=== PATIENT | female | born 1955 | race Caucasian/White ===

== ENCOUNTER 2021-05-20 16:59 | Outpatient (REF) | payer MEDICARE, SELFPAY ==
[2021-05-20 17:50] LABS: Influenza A PCR NEGATIVE (Negative); Influenza B PCR NEGATIVE (Negative); Resp Syncy Virus RNA Qual PCR NEGATIVE (Negative); SARS COV2 PCR INHOUSE NEGATIVE (Negative)
== END 2021-05-20 17:00 | disposition home or self-care (01) ==
LOC: HO.LNP 16:59
PROVIDERS: Visit Provider Internal Medicine
DX: Z20.822 Contact with and (suspected) exposure to COVID-19 (principal); R43.9 Unspecified disturbances of smell and taste
CPT/HCPCS: 0241U

== ENCOUNTER 2021-10-15 13:38 | Emergency (ER) | payer MEDICARE, SELFPAY ==
--- NOTE | ~2021-10-15 | CT_ITS ---
EXAMINATION: CT HEAD WITHOUT CONTRAST CLINICAL INFORMATION: Headache and dizzy. COMPARISON: There are no prior studies available comparison. TECHNIQUE: Contiguous axial imaging was performed from the skull base to vertex without intravenous administration of contrast. Coronal and sagittal reformatted images were generated at the technologist workstation. This CT examination was performed using dose optimization techniques as appropriate, variously including the following: *Automated exposure control *Adjustment of mA and/or kV according to patient size (this includes techniques or standardized protocols for targeted exams where dose is matched to indication/reason for exam; i.e. extremities or head) *Use of iterative reconstruction technique DLP: 677 mGy-cm FINDINGS: There is no evidence of acute intracranial hemorrhage or territorial infarction. No abnormal mass effect or midline shift is seen. Buckley to white matter differentiation is well preserved. No extra-axial fluid collections are identified. There is mild commensurate prominence of the ventricles and sulci. There is mild prominence of the extra-axial CSF around the frontal lobes bilaterally. There are areas of low-attenuation in the periventricular and subcortical white matter, most prominent adjacent to the anterior horn of the left lateral ventricle; these findings are most consistent with chronic microvascular ischemic changes. The soft tissues are unremarkable. There are no acute osseous findings. There is hyperostosis frontalis interna. There is mild left and moderate right fluid in the mastoid air cells. There is cerumen in the left external auditory canal. The visualized portions of the paranasal sinuses are well aerated. CT/CT head/brain wo con IMPRESSION: 1. There are no acute bleeds or territorial infarcts. No masses are demonstrated. 2. There is diffuse volume loss and there are chronic microvascular ischemic changes.
[2021-10-15 14:45] VITALS: BP 172/92; PULSE 94; RESP 18; TEMP 36.8; O2SAT 97; BMI 32.4
[2021-10-15 15:07] LABS: MANUAL DIFF FLAG NO
[2021-10-15 15:10] LABS: Basophils Percent Auto 0.4 % (0-2); Eosinophils Absolute Auto 0.2 X10*3/uL (0.0-0.4); Eosinophils Percent Auto 1.9 % (0-4); Hematocrit 41.5 % (37.0-47.0); Hemoglobin 14.6 g/dl (12.0-16.0); Imm Gran Abs Auto 0.04 X10*3/uL (0.00-0.03); Imm Gran Pct Auto 0.4 % (0.0-0.4); Lymphocytes Absolute Auto 3.2 X10*3/uL (1.2-4.9); Lymphocytes Percent Auto 28.4 % (20-40); Mean Corpuscular HGB Conc 35.2 g/dl (31.0-35.0); Mean Corpuscular Hemoglobin 31.8 pg (27.0-33.0); Mean Corpuscular Volume 90.4 fL (80.0-98.0); Mean Platelet Volume 9.4 fL (9.4-12.3); Monocytes Absolute Auto 0.5 X10*3/uL (0.1-1.2); Monocytes Percent Auto 4.4 % (2-11); Neutrophils Absolute Auto 7.2 x10*3/uL (2.0-8.3); Neutrophils Percent Auto 64.5 % (45-73); Platelet Count 249 X10*3/uL (160-400); Red Blood Count 4.59 X10*6/uL (4.20-5.50); Red Cell Distribution Width 14.4 % (11.0-16.0); White Blood Count 11.1 X10*3/uL (4.8-10.8)
[2021-10-15 15:35] LABS: Anion Gap 16 (12-20); Blood Urea Nitrogen 17 mg/dL (9-16); Calcium 9.5 mg/dL (8.4-10.2); Carbon Dioxide 23 mmol/L (22-29); Chloride 109 mmol/L (96-108); Creatinine Clr Calc Pharmacy 75.1; Estimated Glomerular Filt Rate > 60; Glucose Random 130 mg/dL (60-115); Potassium 4.6 mmol/L (3.3-5.1); Sodium 143 mmol/L (135-145)
--- NOTE | 2021-10-15 18:14 | PC.NURSE ---
pt arrives to the room with multiple complaints including weakness, diarrhea and thyroid concerns
[2021-10-15 18:16] VITALS: BP 189/87; PULSE 88; RESP 18; O2SAT 97
[2021-10-15] MEDS: Ketorolac Tromethamine 15 MG/ML VIAL IVPUSH (19:09)
[2021-10-15] MEDS: 0.9 % Sodium Chloride 1,000 ML 999 ML IV (19:09)
[2021-10-15] MEDS: ondansetron HCL 4 MG/2 ML VIAL IVPUSH (19:10)
[2021-10-15] MEDS: diphenhydrAMINE HCL 50 MG/ML VIAL 25 MG IVPUSH (19:10)
--- NOTE | 2021-10-15 19:23 | ED.GENADULT ---
HPI - General Adult General Chief complaint: General Medical Stated complaint: Vertigo/High thyroid/High WBC Time Seen by Provider: 10/15/21 18:02 Source: patient and family Mode of arrival: ambulatory Limitations: no limitations History of Present Illness HPI narrative: 65-year-old female presents for 2 months of diarrhea, nausea, fatigue, intermittent headaches, and vertigo. Patient came here because it took a long time to get an appointment to see her PCP. She sees her PCP October 21. Patient was seen at [facility] urgent care 3 weeks ago, was told she had an elevated white blood cell count and elevated thyroid test. Patient has had diarrhea for 2 months, she has it up to 5 times each day, no dark tarry or bloody stools. Patient is nauseous and is always tired. She has in sensation in the morning when she wakes up and falls back to sleep that she will wake up again. She is not suicidal. States when she does eat she feels famished 20 minutes later. States her head feels sweaty. This morning she had a headache that is like her usual headaches that she woke up with. The headache was gradual in onset was 6/10. No fever, no stiff neck, no photophobia, no gait disturbance, no vomiting. She had dizziness when she sat up in the room was spinning. She has a history of ear infections and has had vertigo in the past. The vertigo has almost entirely resolved, she has no focal weakness, numbness, or tingling. No chest pain or shortness of breath, no upper respiratory symptoms, no abdominal pain, no bad foods, recent travel, or water from unknown sources. Patient is vaccinated for COVID. by bedside tells me that they are under lot of stress because they were in a custody patrick for their granddaughter. Patient endorses a past medical history of anxiety. Related Data Home Medications Medication Instructions Recorded Confirmed alprazolam 0.5 mg tablet 0.5 mg PO TID PRN 05/20/21 10/15/21 lamotrigine 100 mg tablet 100 mg PO QAM 05/20/21 10/15/21 venlafaxine 150 mg 300 mg PO QAM 05/20/21 10/15/21 capsule,extended release 24 hr zolpidem 10 mg tablet 10 mg PO BEDTIME 05/20/21 10/15/21 Previous Rx's Medication Instructions Recorded dexamethasone 4 mg tablet 4 mg PO DAILY 3 Days #3 tab 10/15/21 lisinopril 10 mg tablet 10 mg PO DAILY 14 Days #14 tab 10/15/21 ondansetron 4 mg disintegrating 4 mg PO Q8H PRN #9 tab 10/15/21 tablet Allergies Allergy/AdvReac Type Severity Reaction Status Date / Time No Known Allergies Allergy Verified 10/15/21 14:43 Review of Systems Constitutional: Constitutional: Denies body ache(s), Denies chills, Denies fatigue, Denies fever(s), Reports headache(s), Reports malaise and Denies weakness Eyes: Eyes: Denies blurry vision and Denies diplopia ENT: Reports vertigo, Denies otalgia, Reports headache(s), Denies mouth pain, Denies post nasal drip, Denies sinus pain, Denies sinus pressure, Denies sore throat and Denies throat swelling Cardiovascular: Cardiovascular: Denies chest pain, Denies syncope, Denies leg edema, Denies lightheadedness, Denies Loss of Consciousness, Denies palpitations and Denies dyspnea Respiratory: Respiratory: Denies chest congestion, Denies cough and Denies dyspnea Gastrointestinal: Gastrointestinal: Reports abdominal pain, Denies melena, Denies hematochezia, Denies coffee ground emesis, Denies constipation, Reports diarrhea, Reports nausea and Denies vomiting Genitourinary: Genitourinary: Reports no additional female genitourinary complaints Musculoskeletal: Musculoskeletal: Reports no additional musculoskeletal complaints, Denies numbness and Denies tingling Neurologic: Denies Abnormal speech present, Denies confusion, Reports vertigo, Denies syncope, Reports headache(s), Denies lack of coordination, Denies focal weakness, Denies numbness, Denies Sensory deficit (Neuro), Denies tingling and Denies weakness Psychiatric: Psychiatric: Reports anxiety, Denies confusion and Denies depression Endocrine: Endocrine: Denies fatigue and Denies palpitations Allergic/Immunologic: Allergic/Immunologic: Denies throat swelling PMFSH Past Medical History Medical History (Updated 10/15/21 @ 21:16 by MARCO Jones) Anxiety Depression Vertigo Social History Social History Alcohol intake: never Patient Tobacco Use Status: Never used Tobacco Use of substances other than those prescribed or required for medical reasons: No Advance Directives: No Advance Directives Information Provided: Yes Patient : No Physical Exam ED Vital Signs: Vital Signs - 24 hr 10/15/21 14:45 10/15/21 18:16 10/15/21 19:34 Temperature 98.3 F Pulse Rate 94 88 84 Respiratory Rate 18 18 Blood Pressure 172/92 H 189/87 H 179/87 H Pulse Oximetry 97 97 10/15/21 19:35 10/15/21 19:36 10/15/21 20:00 Temperature Pulse Rate 84 100 93 Respiratory Rate 96 H Blood Pressure 180/88 H 181/93 H 165/74 H Pulse Oximetry 97 BMI result Body Mass Index 32.4 Const General: alert and awake; No confusion Nutritional Appearance: obese Orientation/consciousness: patient oriented x3 and No confusion Limitations: no limitations HENMT Head: Yes normal to inspection, Yes No palpable skull fracture present, Yes normocephalic and Yes atraumatic Ears: hearing grossly normal bilaterally, TM normal on the left and TM abnormal bulging on the right and wth effusion serous General nose exam: Normal external nose present Face and sinus: Yes normal facial exam Mouth: Normal oral and palatal mucosa present Throat: Yes posterior oropharynx normal Eyes Periorbital: periorbital findings normal Eyelids: Yes eyelids normal Conjunctivae: conjunctivae normal Pupils: Equal, round and reactive pupils present EOM: EOMs intact bilaterally and No Nystagmus present Direct Ophthalmoscopy: no photophobia Neck Neck: Yes normal visual inspection, Yes full ROM, Yes no lymphadenopathy, Yes no meningeal signs, Yes trachea midline and Yes supple Resp Effort & Inspection: normal respiratory effort and able to speak in complete sentences Auscultation: clear to auscultation bilaterally, no crackles, no rales, no rhonchi and no wheezes Cardio Rate: regular rate Rhythm: regular rhythm Heart sounds: S1 normal heart sound present and S2 normal heart sound present GI Inspection: Yes Abdominal panniculus present and Yes obesity Palpation (GI): Soft to palpation, not firm, nontender, no guarding and not rigid Percussion: Yes normal to percussion Auscultation: normal bowel sounds General: Yes no CVA tenderness Back/Spine/Pelvis Back: no CVA tenderness Skin General skin exam: no rashes or lesions noted Neuro General: patient oriented x3, no meningeal signs and No confusion Cranial nerves: Yes CN's II-XII intact bilaterally, Yes Facial sensation intact/muscles of mastication intact, Yes Equal, round and reactive pupils present, Yes Normal accommodation reflex present, Yes Bilaterally intact EOM present, Yes Nystagmus not present, Yes Normal facial strength present, Yes Midline tongue present, Yes Ability to bilaterally rotate head present, Yes Ability to bilaterally elevate shoulders present and No Nystagmus present Cognition (Neuro): normal cognition Speech: No Abnormal speech present Gait exam (Neuro): Normal gait present Motor exam (neuro): 5/5 motor strength present throughout and Pronator motor function not present Sensory Exam: No Sensory deficit (Neuro) Deep tendon reflexes (DTR's): Right brachioradialis reflex intensity grade: 1+, Left brachioradialis reflex intensity grade: 1+, Right patellar reflex intensity grade: 1+ and Left patellar reflex intensity grade: 1+ Coordination: [id number] test normal, [id number] test normal and tandem gait normal Romberg Test: Negative Pupils: Normal pupillary reactivity/response: bilateral Extrem General: Yes normal to inspection, Yes full ROM and Yes capillary refill normal Psych Appearance: grossly normal Mental Status: mental status grossly normal Speech and movement: Normal speech and movement present Affect: Sad affect present and Anxious affect present Attitude: cooperative Thought process: Normal thought process present Course Course Course Narrative: 65-year-old female with 2 months of diarrhea, nausea, fatigue, headaches, and vertigo that started today. On exam, patient is anxious and tearful. Patient is hypertensive with a systolic at 189. Patient has lungs clear to auscultation, benign abdominal exam, benign neurological exam. No focal neuro deficits. Only physical abnormalities patient has clear fluid behind her right TM and her right TM is bulging will give fluids, Toradol, Benadryl, Zofran, will get stool studies, C diff, TSH, head CT. Reevaluation(s) Reevaluation #1: CT/CT head/brain wo con IMPRESSION: 1. There are no acute bleeds or territorial infarcts. No masses are demonstrated. 2. There is diffuse volume loss and there are chronic microvascular ischemic changes. Labs is remarkable for white blood cell count of 11.1, TSH 4.49. Reevaluation #2: patient's headache is now a 4/10 and is better than it was. Patient's blood pressure has remained high in the emergency room, lowest reading has been 157/80. Discussed starting patient on lisinopril at a low dose and to follow-up with her primary care provider. Will give patient dexamethasone to abort rebound headache, and short course of Zofran for nausea. Told patient that her stool culture is pending, and to call us if she has not heard from us in a couple of days. Counseled patient to record her blood pressure for the next 6 days until she sees her primary care provider. Discussed that her thyroid may be low and she may need to start on thyroid medication, this is something her primary care provider can manage. Medical Decision Making Lab Data Result diagrams: 10/15/21 15:03 10/15/21 15:03 Labs: Lab Results 10/15/21 10/15/21 Range/Units 15:03 15:03 WBC 11.1 H (4.8-10.8) X10*3/uL RBC 4.59 (4.20-5.50) X10*6/uL Hgb 14.6 (12.0-16.0) g/dl Hct 41.5 (37.0-47.0) % MCV 90.4 (80.0-98.0) fL MCH 31.8 (27.0-33.0) pg MCHC 35.2 H (31.0-35.0) g/dl RDW 14.4 (11.0-16.0) % Plt Count 249 (160-400) X10*3/uL MPV 9.4 (9.4-12.3) fL Immature Gran % (Auto) 0.4 (0.0-0.4) % Neut % (Auto) 64.5 (45-73) % Lymph % (Auto) 28.4 (20-40) % Toole % (Auto) 4.4 (2-11) % Eos % (Auto) 1.9 (0-4) % Baso % (Auto) 0.4 (0-2) % Lymph # (Auto) 3.2 (1.2-4.9) X10*3/uL Toole # (Auto) 0.5 (0.1-1.2) X10*3/uL Eos # (Auto) 0.2 (0.0-0.4) X10*3/uL Baso # (Auto) 0.0 (0.0-0.2) X10*3/uL Abs Immat Gran (auto) 0.04 H (0.00-0.03) X10*3/uL Absolute Neuts (auto) 7.2 (2.0-8.3) x10*3/uL Absolute Nucleated RBC 0.000 (0.0-0.012) X10*3/uL Nucleated RBC % (auto) 0.0 (0.0-0.2) /100WBC Sodium 143 (135-145) mmol/L Potassium 4.6 (3.3-5.1) mmol/L Chloride 109 H (96-108) mmol/L Carbon Dioxide 23 (22-29) mmol/L Anion Gap 16 (12-20) BUN 17 H (9-16) mg/dL Creatinine 0.86 (0.5-1.4) mg/dL Estim Creat Clear Calc 75.1 Estimated GFR > 60 Random Glucose 130 H (60-115) mg/dL Calcium 9.5 (8.4-10.2) mg/dL TSH 4.49 H (0.32-4.0) uIU/mL Free T4 0.91 (0.71-1.85) ng/dL Discharge Plan Discharge Clinical Impression: Diarrhea, Hypertension, Anxiety Patient Disposition: Home, Self-Care Instructions: Hypertension (ED) Additional Instructions: Please take your blood pressure and recorded every day for the next 6 days and keep your appointment with your primary care provider for October 21. We have obtained stool studies, please call if you have not heard the results in the next couple of days. If they are positive we should be calling you. Your thyroid test is high which means your thyroid is not functioning well, please discuss this with her primary care provider. I have prescribed 2 weeks of a hypertension medication called lisinopril, take this once a day and record your blood pressures. I have also prescribed ondansetron, this is for nausea, take it only as prescribed. Please take dexamethasone once in the morning for the next 3 days to make sure you do not get a rebound headache. Please return to emergency room if you have sudden severe headache, visual changes, gait disturbance, chest pain, shortness of breath, or any other new or concerning symptoms. Prescriptions: New lisinopril 10 mg tablet 10 mg PO DAILY 14 Days Qty: 14 0RF dexamethasone 4 mg tablet 4 mg PO DAILY 3 Days Qty: 3 0RF ondansetron 4 mg tablet,disintegrating 4 mg PO Q8H PRN (Reason: nausea and vomiting) Qty: 9 0RF No Action zolpidem 10 mg tablet 10 mg PO BEDTIME 0RF alprazolam 0.5 mg tablet 0.5 mg PO TID PRN (Reason: Anxiety) 0RF lamotrigine 100 mg tablet 100 mg PO QAM 0RF venlafaxine 150 mg capsule,extended release 24hr 300 mg PO QAM 0RF
[2021-10-15 19:34] VITALS: BP 179/87; PULSE 84
[2021-10-15 19:34] LABS: TSH reflex Free T4 4.49 uIU/mL (0.32-4.0)
[2021-10-15 19:35] VITALS: BP 180/88; PULSE 84
[2021-10-15 19:36] VITALS: BP 181/93; PULSE 100
[2021-10-15 20:00] VITALS: BP 165/74; PULSE 93; RESP 96; O2SAT 97
[2021-10-15 20:24] LABS: Free T4 (Free Thyroxine) 0.91 ng/dL (0.71-1.85)
[2021-10-15] MEDS: dexAMETHasone 4 MG TABLET PO (21:36)
== END 2021-10-15 21:40 | disposition home or self-care (01) ==
PROVIDERS: Emergency Provider Internal Medicine
DX: R19.7 Diarrhea, unspecified (principal); R51.9 Headache, unspecified; I10 Essential (primary) hypertension; F41.9 Anxiety disorder, unspecified; Z79.899 Other long term (current) drug therapy
CPT/HCPCS: 36415; 70450; 80048; 84439; 84443; 85025; 96361; 96374; 96375; 99284; 99285; J1200; J1885; J2405; J8540

== ENCOUNTER 2022-02-05 09:02 | Emergency (ER) | payer MEDICARE, SELFPAY ==
[2022-02-05 09:13] VITALS: BP 126/96; PULSE 73; RESP 16; TEMP 36.7; O2SAT 98; BMI 29.0
--- NOTE | 2022-02-05 10:40 | ED.EAR ---
HPI - Ear Problem General Chief complaint: Ear Problems Stated complaint: double ear infection Time Seen by Provider: 02/05/22 10:37 Source: patient Mode of arrival: ambulatory Limitations: no limitations History of Present Illness HPI Narrative: 66-year-old female with a history of multiple episodes of ruptured right tympanic membrane, multiple tympanoplasties, and a history of bilateral acute otitis media, presents for decreased hearing in her right ear and decreased hearing in her left ear for the last week after being treated for a bilateral acute otitis media. Do not have weeks ago patient had cold symptoms and went to an urgent care and was diagnosed with allergies, patient went to another urgent care and was prescribed amoxicillin for an otitis media. Patient finished her amoxicillin 1 week ago. About 1 week ago patient lost hearing in her right ear entirely, reports she has 20% hearing in her left ear. Reports her ear pain has resolved, however she has intermittent right ear pain, no ear pain now. No fevers. No other upper respiratory symptoms. MD Complaint: ear pain and decreased hearing Location: bilateral Related Data Previous Rx's Medication Instructions Recorded lisinopril 10 mg tablet 10 mg PO DAILY 14 days #14 tabs 10/15/21 amoxicillin 875 mg-potassium 1 tab PO BID 10 days #20 tabs 02/05/22 clavulanate 125 mg tablet ofloxacin 0.3 % ear drops 10 drp otic (ears) Q12H 14 days 02/05/22 #10 mL Allergies Allergy/AdvReac Type Severity Reaction Status Date / Time No Known Allergies Allergy Verified 01/21/22 11:06 Review of Systems Constitutional: Constitutional: Denies body ache(s), Denies chills, Denies fatigue, Denies fever(s), Denies headache(s), Denies malaise and Denies weakness Eyes: Eyes: Denies diplopia ENT: Denies vertigo, Denies dizziness, Denies ear discharge, Reports otalgia, Denies headache(s), Reports hearing loss, Denies mouth pain, Denies nasal congestion, Denies nasal discharge, Denies disequilibrium, Denies post nasal drip, Denies sinus pain, Denies sinus pressure, Denies sore throat and Denies throat swelling Cardiovascular: Cardiovascular: Denies chest pain, Denies syncope, Denies leg edema, Denies lightheadedness, Denies Loss of Consciousness, Denies palpitations and Denies dyspnea Respiratory: Respiratory: Denies chest congestion, Denies cough and Denies dyspnea Gastrointestinal: Gastrointestinal: Denies abdominal pain, Denies hematochezia, Denies constipation, Denies diarrhea and Denies vomiting Musculoskeletal: Musculoskeletal: Reports no additional musculoskeletal complaints Neurologic: Denies confusion, Denies vertigo, Denies dizziness, Denies syncope, Denies headache(s), Denies disequilibrium and Denies weakness Psychiatric: Psychiatric: Denies anxiety, Denies confusion and Denies depression Endocrine: Endocrine: Denies fatigue and Denies palpitations Allergic/Immunologic: Allergic/Immunologic: Denies throat swelling PMFSH Past Medical History Medical History Anxiety Depression Vertigo Social History Social History Alcohol intake: never Patient Tobacco Use Status: Never used Tobacco Advance Directives: No Advance Directives Information Provided: No Physical Exam Vital Signs: Vital Signs: Last Vital Signs Temp 98.0 F 02/05/22 09:13 Pulse 73 02/05/22 09:13 Resp 16 02/05/22 09:13 BP 126/96 H 02/05/22 09:13 Pulse Ox 98 02/05/22 09:13 O2 Del Method 02/05/22 09:13 BMI result Body Mass Index 29.0 Const: General: No confusion Nutritional Appearance: well nourished Orientation/consciousness: No confusion Limitations: no limitations HEENT: Head: Yes normal to inspection, Yes normocephalic and Yes atraumatic Ears: external ears normal, EAC's normal and TM abnormal dull bilateral, perforated (right) and scarred on the left Outer ear/TM images: 1. perforation General nose exam: Normal external nose present Face and sinus: Yes normal facial exam and Yes sinuses nontender Mouth: Normal oral and palatal mucosa present Throat: Yes posterior oropharynx normal Eyes: Conjunctivae: conjunctivae normal Pupils: Equal, round and reactive pupils present EOM: EOMs intact bilaterally Neck: Neck: Yes full ROM, Yes no lymphadenopathy and Yes supple Resp: Effort & Inspection: normal respiratory effort and able to speak in complete sentences Auscultation: clear to auscultation bilaterally, no crackles, no rales, no rhonchi and no wheezes Cardio: Rate: regular rate Rhythm: regular rhythm Heart sounds: S1 normal heart sound present and S2 normal heart sound present GI: Inspection: Yes normal to inspection Palpation (GI): Soft to palpation, nontender, no guarding and not rigid Percussion: Yes normal to percussion Auscultation: normal bowel sounds Skin: General skin exam: no rashes or lesions noted Neuro: General: No confusion Cranial nerves: Yes Equal, round and reactive pupils present Extrem: General: Yes normal to inspection and Yes full ROM Psych: Appearance: grossly normal Affect: normal affect Attitude: cooperative Thought process: Normal thought process present Course Course Course Narrative: 66-year-old female with a history of tympanoplasties and tympanic rupture due to otitis, presents with 1 week worsening hearing loss. Patient states she cannot hear out of her right ear at all, can only hear 20% of her left ear. On exam, patient has ruptured ear drum right ear, both TMs are dull. No erythema or bulging. No fevers. I can communicate with this patient by speaking loudly. Patient is frustrated because she cannot get ENT follow-up. Will try to refer patient to ENT at [facility] as our local ENT doctor, Dr Garrido is not in clinic today Will treat with Augmentin and fluoroquinolone drops Discharge Plan Discharge Clinical Impression: Otitis media, serous, TM rupture, Acute hearing loss of both ears Patient Disposition: Home, Self-Care Prescriptions: New amoxicillin-pot clavulanate 875-125 mg tablet 1 tab PO BID 10 Days Qty: 20 0RF ofloxacin 0.3 % drops 10 drp otic (ears) Q12H 14 Days Qty: 10 0RF No Action lisinopril 10 mg tablet 10 mg PO DAILY 14 Days Qty: 14 0RF
== END 2022-02-05 13:33 | disposition home or self-care (01) ==
PROVIDERS: Emergency Provider Emergency Medicine Emergency Medical Services
DX: H91.8X3 Other specified hearing loss, bilateral (principal); H65.06 Acute serous otitis media, recurrent, bilateral; H72.821 Total perforations of tympanic membrane, right ear
CPT/HCPCS: 99283

== ENCOUNTER 2023-05-19 08:15 | Outpatient (AMB) | payer MEDICARE, SELFPAY ==
--- NOTE | 2023-05-19 09:58 | MHC.OFFWIV ---
Intake Vital Signs 05/19/23 10:00 Height 5 ft 5 in Weight 205 lb BMI 34.1 BP 130/88 Blood Pressure Location Rt brachial Position Sitting Pulse 79 Pulse Source Pulse Oximeter Temp 97.4 F Temp Source Temporal Artery Scan Pulse Oximetry (%) 98 Oxygen Delivery Method Room Air Intake Visit Reasons: EP, sinus congestion, congestion (masked) Intake Note: pt is here today for sinus congestion Patient Tobacco Use Status: Never used Tobacco Allergies No Known Allergies Allergy (Verified 05/19/23 10:02) Do you need a note to return to daycare/school/sports/work: No HPI HPI Comments History of Present Illness Details This is a 67-year-old female with a past medical history of hypertension presenting for evaluation of sinus pressure and cough that she has had for the past 2 weeks. Patient states her symptoms initially started with a sore throat, which has since resolved, and the patient now has sinus pressure which has worsened and a nocturnal cough. Patient denies fevers but has had chills and significant fatigue. Patient states that she will have productive mucus when she coughs that is yellow and green tinged. [facility] Medical History Vertigo Anxiety Depression Social History Alcohol intake: never Patient Tobacco Use Status: Never used Tobacco Review of Systems Const All systems reviewed & are unremarkable except as noted in HPI and below Reports chills, Reports fatigue, Denies fever(s), Denies malaise and Denies night sweats Eyes Reports as per HPI ENT Denies dizziness, Denies otalgia, Denies tinnitus, Reports sinus pain, Reports sinus pressure and Reports sore throat (resolved) Card Reports no additional complaints Resp Reports cough (nocturnal) Neuro Reports no additional complaints and Denies dizziness Psych Reports no additional complaints Endo Reports fatigue Physical Exam Vital Signs: Last Vital Signs Temp 95.5 F L 05/19/23 10:00 Pulse 79 05/19/23 10:00 BP 130/88 05/19/23 10:00 Pulse Ox 98 05/19/23 10:00 Oxygen Delivery Method Room Air 05/19/23 10:00 BMI result Body Mass Index 34.1 Const Other: afebrile General: comfortable, no acute distress and awake; No ill appearing or lethargic Nutritional Appearance: overweight Orientation/consciousness: patient oriented x3 and No lethargic Limitations: no limitations HEENT Head: Yes normal to inspection Ears: hearing grossly not impaired and other (R. TM tube visualized, L. no TM tube visualized; TMs mildly erythematous) General nose exam: Normal external nose present Face and sinus: Yes sinus tenderness and No dry mucous membranes Mouth: Normal oral and palatal mucosa present Teeth and gingiva: dentition normal Throat: Yes postnasal drainage Eyes General: appearance normal, both eyes and all related structures Visual Lau: normal visual lau by confrontation Conjunctivae: conjunctivae normal Sclerae: sclerae normal Pupils: Equal, round and reactive pupils present Resp Effort & Inspection: normal respiratory effort, able to speak in complete sentences and no respiratory distress Auscultation: clear to auscultation bilaterally Cardio Rate: regular rate Rhythm: regular rhythm Skin General skin exam: no rashes or lesions noted Neuro General: patient oriented x3 Cranial nerves: Yes Equal, round and reactive pupils present Psych Appearance: grossly normal Mental Status: mental status grossly normal Insight: Good insight present (Psych) Judgement: Good judgement present (Psych) Assessment & Plan Assessment & Plan (1) Acute bacterial sinusitis: Code(s): J01.90 - Acute sinusitis, unspecified; B96.89 - Other specified bacterial agents as the cause of diseases classified elsewhere Plan: Doxycycline 100mg BID x 7 days; patient is encouraged to initiate treatment with a daily antihistamine such as Claritin/loratadine. Patient will contact Dr. Zhao, her ENT specialist, regarding her left TM tube which was not visualized on examination. Medications: New doxycycline hyclate 100 mg PO BID 14 tabs 0RF Coding Level of Care Code New Pt Level 3 (39654) Diagnoses Acute bacterial sinusitis J01.90; B96.89 Time Spent (min) 30
[2023-05-19 10:00] VITALS: BP 130/88; PULSE 79; TEMP 36.3; O2SAT 98; BMI 34.1
== END 2023-05-19 11:16 | disposition home or self-care (01) ==
PROVIDERS: Visit Provider Physician Assistant
DX: J01.90 Acute sinusitis, unspecified (principal); B96.89 Other specified bacterial agents as the cause of diseases classified elsewhere
CPT/HCPCS: 99203

== ENCOUNTER 2023-11-15 08:06 | Outpatient (AMB) | payer MEDICARE, SELFPAY ==
[2023-11-15 08:41] VITALS: BP 142/86; PULSE 94; TEMP 36.5; O2SAT 95; BMI 33.1
--- NOTE | 2023-11-15 08:41 | AM.OFFWIN_ITS ---
Intake Vital Signs 11/15/23 08:41 Height 5 ft 5 in Weight 199 lb BMI 33.1 BP 142/86 H Blood Pressure Location Lt brachial Position Sitting Pulse 94 Pulse Source Pulse Oximeter Temp 97.7 F Temp Source Temporal Artery Scan Pulse Oximetry (%) 95 Oxygen Delivery Method Room Air Intake Visit Reasons: EP sore throat fever headache Intake Note: pt is here today for sore throat fever headache started tuesday Patient Tobacco Use Status: Never used Tobacco Allergies No Known Allergies Allergy (Verified 11/15/23 09:31) Medication List - Last Reconciled 11/15/23 by ELLEN Cain lisinopril 10 mg PO DAILY 14 days Do you need a note to return to daycare/school/sports/work: Yes HPI HPI Comments History of Present Illness Details Patient is a 67-year-old female in today for sick visit. Patient states that 2 days prior she developed symptoms of sore throat, headache, fever. 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 Has utilize Tylenol with mild effectiveness. Patient denies shortness of breath, chest pain, nausea, vomiting, diarrhea. [facility] Medical History Vertigo Anxiety Depression Social History Alcohol intake: never Patient Tobacco Use Status: Never used Tobacco Review of Systems Const All systems reviewed & are unremarkable except as noted in HPI and below Physical Exam Vital Signs: Last Vital Signs Temp 97.7 F 11/15/23 08:41 Pulse 94 11/15/23 08:41 BP 142/86 H 11/15/23 08:41 Pulse Ox 95 11/15/23 08:41 Oxygen Delivery Method Room Air 11/15/23 08:41 BMI result Body Mass Index 33.1 Const Other: Appearance: Alert.? Oriented X3.? No acute distress.? Head: Normocephalic, atraumatic. Eyes: Pupils equal, round and reactive to light.? ENT: Pharynx erythema, + cobblestoned. TM intact and pearly macdonald. Patient has bilateral eustation tubes. Neck: Normal inspection.? Neck supple.?Full ROM. CVS: Normal heart rate and rhythm.? Pulses normal.? Respiratory: No respiratory distress.? Breath sounds normal.? Neuro: Oriented X 3.? No motor deficit.? No sensory deficit. CN 2-12 intact Results AMB Rapid Strep AMB Rapid Strep Negative Last Edit by Raven Schuler MA on 11/15/23 09:19 Results Reviewed Results Reviewed: Laboratory Last Values Strep Scn [facility] Negative 11/15/23 09:18 Assessment & Plan Assessment & Plan (1) Upper respiratory infection: Comment: Patient negative for strep in office. Patient also had URI swab. Likely upper respiratory infection. Patient has been educated on supportive measures and [id number] medication she can utilize for symptom relief. Patient has been educated that symptoms can take 7-10 days to resolve. Should drink plenty of fluids. Code(s): J06.9 - Acute upper respiratory infection, unspecified Qualifiers: URI type: unspecified URI Qualified Code(s): J06.9 - Acute upper respiratory infection, unspecified Plan: Take your medications as prescribed. If you were prescribed antibiotics today, it is important that you take your medication to their entirety, do not skip any doses, do not finish them early. Follow-up with your primary care provider this week. Return to the emergency department with new or worsening symptoms. Such as fevers, chills, chest pain, shortness of breath, nausea, vomiting, dizziness, headache, vision changes, lethargy In case of emergency call 911 Plan Follow-up with PCP Orders: Orders SARS-CoV2/FLU/RSV Today J06.9 - Acute upper respiratory infection, unspecified Coding Level of Care Code Est Pt Level 3 (02440) Diagnoses Upper respiratory tract infection, unspecified type J06.9 URI type: unspecified URI Time Spent (min) 21
== END 2023-11-15 09:52 | disposition home or self-care (01) ==
PROVIDERS: Visit Provider Nurse Practitioner Primary Care
DX: J06.9 Acute upper respiratory infection, unspecified (principal)
CPT/HCPCS: 99213

== ENCOUNTER 2023-11-15 10:14 | Outpatient (REF) | payer MEDICARE, SELFPAY ==
[2023-11-15 11:37] LABS: Influenza A PCR NEGATIVE (Negative); Influenza B PCR NEGATIVE (Negative); Resp Syncy Virus RNA Qual PCR NEGATIVE (Negative); SARS COV2 PCR INHOUSE NEGATIVE (Negative)
== END 2023-11-15 10:15 | disposition home or self-care (01) ==
LOC: HO.HMGCLNP 10:14
PROVIDERS: Visit Provider Nurse Practitioner Primary Care
DX: J06.9 Acute upper respiratory infection, unspecified (principal)
CPT/HCPCS: 0241U